=== PATIENT | female | born 1975 | race African-American/Black ===

== ENCOUNTER 2018-07-28 10:49 | Emergency (ER) | payer OTHER ==
[~2018-07-28] VITALS: Ht 165.1 cm; Wt 99.3 kg
[2018-07-28 10:53] VITALS: BP 198/120
[2018-07-28] MEDS ORDERED: HUMALOG100 UNIT/1 SUBQ (10:57)
[2018-07-28] MEDS ORDERED: PAXIL10 MG PO (10:57)
[2018-07-28] MEDS ORDERED: HYDROCHLOROTH12.5 M1 PO (10:57)
[2018-07-28] MEDS ORDERED: AMLODIPINE BESY10 MG PO (10:57)
[2018-07-28] MEDS ORDERED: COZAAR 25 MG TA25 M1 PO (10:57)
[2018-07-28] MEDS ORDERED: CARVEDILOL12.5 MG PO (10:57)
[2018-07-28] MEDS ORDERED: BASAGLAR K100 UNIT/1 SUBQ (10:58)
== END 2018-07-28 12:05 | disposition home or self-care (01) ==
LOC: ER 10:49
DX: M79.671 Pain in right foot (principal)

== ENCOUNTER 2019-05-26 14:15 | Emergency (ER) | payer OTHER ==
[~2019-05-26] VITALS: Ht 160 cm; Wt 99.3 kg
[~2019-05-26 14:15] MED LIST: AMLODIPINE BESY10 MG PO; BASAGLAR K100 UNIT/1 SUBQ; CARVEDILOL12.5 MG PO; COZAAR 25 MG TA25 M1 PO; HUMALOG100 UNIT/1 SUBQ; HYDROCHLOROTH12.5 M1 PO; PAXIL10 MG PO
[2019-05-26] MEDS ORDERED: HYZAAR 50-12.51 EACH PO (14:23)
[2019-05-26] MEDS ORDERED: NORCO 5-325 TA1 EAC1 PO (15:17)
[2019-05-26] MEDS ORDERED: NORVASC5 MG PO (15:44)
[2019-05-26 15:50] VITALS: BP 150/95
== END 2019-05-26 15:51 | disposition home or self-care (01) ==
LOC: ER 14:15
DX: M79.671 Pain in right foot (principal); I10 Essential (primary) hypertension; M79.89 Other specified soft tissue disorders; E11.9 Type 2 diabetes mellitus without complications; E78.00 Pure hypercholesterolemia, unspecified; Z79.899 Other long term (current) drug therapy; Z79.4 Long term (current) use of insulin; Z98.890 Other specified postprocedural states